=== PATIENT | male | born 1980 | race Caucasian/White ===

== ENCOUNTER 2020-05-14 07:13 | Emergency (ER) | payer MEDICAID, OTHER ==
[~2020-05-14] VITALS: Ht 188 cm; Wt 88.5 kg
[2020-05-14 07:15] VITALS: BP_SYST 168
[2020-05-14] MEDS: NACL 0.9% 1,000 ML IV ONE (08:29)
[2020-05-14] MEDS: KETOROLAC TROMETHAMINE 30 MG VIAL IVP ONE (08:29)
[2020-05-14] MEDS: ONDANSETRON HCL 4 MG/2 ML VIAL IVP ONE (08:30)
[2020-05-14 08:53] LABS: BASOPHILS # (AUTO) 0.1 K/uL (0.0-0.2); BASOPHILS % (AUTO) 0.5 % (0.0-2.0); EOSINOPHILS # (AUTO) 0.1 K/uL (0.0-0.4); EOSINOPHILS % (AUTO) 1.1 % (0.0-4.0); HEMATOCRIT 45.2 % (36-54); HEMOGLOBIN 15.3 g/dL (14.0-18.0); LYMPHOCYTES # (AUTO) 1.8 K/uL (1.0-5.5); LYMPHOCYTES % (AUTO) 18.3 % (20.5-51.5); MEAN CORPUSCULAR HEMOGLOBIN 30 pg (27-31); MEAN CORPUSCULAR HGB CONC 34 % (32-36); MEAN CORPUSCULAR VOLUME 89 fL (79.0-98.0); MONOCYTES # (AUTO) 0.5 K/uL (0.0-1.0); MONOCYTES % (AUTO) 5.5 % (1.7-9.3); NEUTROPHILS # (AUTO) 7.5 K/uL (1.8-7.7); NEUTROPHILS % (AUTO) 74.6 % (40.0-70.0); PLATELET COUNT (AUTO) 198 K/uL (130-430); RED BLOOD CELL COUNT(AUTO) 5.08 MIL/uL (4.2-6.2)
[2020-05-14 09:06] LABS: CREATININE 1.59 mg/dL (0.55-1.30); POTASSIUM 3.6 mmol/L (3.5-5.1)
[2020-05-14] MEDS: MORPHINE 2 MG/ML INJ. SYRINGE IVP ONE (09:10)
[2020-05-14 09:12] LABS: ALBUMIN 4.2 g/dL (3.4-4.8); TOTAL BILIRUBIN 0.5 mg/dL (0.0-1.0)
[2020-05-14] MEDS: HYDROcodone/ACETAMIN 5-325 MG TAB (NORCO/ VICODIN) PO ONE (09:38)
[2020-05-14 09:50] VITALS: BP_SYST 168
== END 2020-05-14 09:50 | disposition home or self-care (01) ==
LOC: SED 07:13
DX: N20.0 Calculus of kidney (principal)
CPT/HCPCS: 36415; 74176; 76376; 80053; 85025; 96361; 96374; 96375; 99284; J1885; J2270; J2405; J7030